=== PATIENT | female | born 1965 | race Hispanic/Latino ===

== ENCOUNTER 2019-10-21 12:41 | Emergency (ER) | payer BC, SELFPAY ==
[2019-10-21 12:43] VITALS: BP 127/75; PULSE 87; RESP 17; TEMP 37.1; O2SAT 98; BMI 28.4
--- NOTE | 2019-10-21 13:05 | CT_ITS ---
STUDY: CT BRAIN WITHOUT CONTRAST REASON FOR EXAM: Female, 54 years old. PEACE SINCE WEDNESDAY, HLD, HTN RADIATION DOSAGE (If Supplied By Facility): CTDIvol = ( 44.99 ) mGy, DLP = ( 779.24 ) mGycm TECHNIQUE: Transaxial CT imaging of the brain was performed without administration of intravenous contrast material. Individualized dose optimization techniques were used for this CT. COMPARISON: No relevant priors. FINDINGS: Normal soft tissue structures. Normal calvarium. Normal size ventricles and extra-axial spaces for the patient''s age. Normal white matter tracts of the cerebral hemispheres. Normal basal ganglia and thalami. Normal brainstem. Normal cerebellum. There is no intracranial hemorrhage. There are no findings of an acute ischemic infarction. Normal visualized paranasal sinuses. CT/Brain/Head without Contrast IMPRESSION: No acute intracranial hemorrhage or mass effect. Electronically Signed: Amol Vallecillo MD ([facility]) at 13:54 EDT , Service support ,
--- NOTE | 2019-10-21 13:06 | ED.DCSUM_ITS ---
- ER Visit Summary Date of Service: 10/21/19 Chief Complaint: Headache History of Present Illness: The patient is a 54 F who presents with a headache that is been getting worse over the past 3 days. Patient states the pain started on the right side of her head 3 days ago and yesterday it was on the left side of her head. Today it is back on the right side of her head in the frontal area. Patient states that yesterday she had some tingling in her left hand and was dropping things. Currently the patient denies any weakness or tingling. Patient denies any fevers or chills. Patient denies any nausea or vomiting. Patient denies any visual changes or photophobia. Patient states she took Aleve at home today with no relief. Physical Examination: Vital signs are stable. Patient is afebrile. Patient is in no acute distress. Pupils are equal, round, and reactive to light bi laterally. Extraocular muscles are intact. Tympanic membranes are clear bilaterally. Oral mucosa is pink and moist. Oropharynx is clear. Neck is supple. Trachea is midline. There is no JVD. Heart was regular rate and rhythm. Lungs are clear and equal bilateral. Abdomen is soft and nontender. Cranial nerves II through XII are intact. Strength is 5/5 bilateral in the upper and lower extremities. There are no sensory deficits noted. Test Results: CT scan of the brain was obtained. There is no acute intracranial hemorrhage or evidence of ischemic infarct. This was interpreted by the radiologist and reviewed by myself. Emergency Department Course and Treatment: Patient was given IV fluids, Reglan, and Benadryl. Patient was still having some headache after this. Patient was given injection of Toradol. Patient states her headache was at a 6 on a scale of 0-10. Patient was ordered morphine but she does not have a ride home. Patient was instructed to continue Tylenol and ibuprofen at home. She was given a prescription for a short course of [place] to take for severe pain. Patient was instructed to rest in a dark quiet room. Patient was instructed to drink plenty of fluids. Patient was instructed to follow-up with her primary care physician in 5 to 7 days. Patient understood and was agreeable with the plan. All questions were answered. Disposition: Discharge home Impression: 1. Headache This note was generated with [employer] software. It may contain incorrect words, spelling, and punctuation that were not noted in review of the chart prior to signing ED Disposition - Plan for ED Patient: Disposition: Home or Assisted Living Diagnosis: Headache Instructions: HEADACHE, Unspecified Prescriptions: Hydrocodone Bitart/Apap 5-325 [[place] 5MG-325MG] 1 tab PO Q4H PRN PRN 2 Days #10 tab PRN Reason: Pain Prescription Printed Referrals: Berry Mcneill DO [Primary Care Provider] - 3-5 Days
[2019-10-21] MEDS: DiphenhydrAMINE 50 MG/ML Syringe 25 MG IV (13:21)
[2019-10-21] MEDS: Metoclopramide 10 MG/2 ML Vial IV (13:22)
[2019-10-21] MEDS: 0.9% Normal Saline 1,000 ML 999 ML IV (13:32)
[2019-10-21] MEDS: Ketorolac 30 MG/ML Syringe IV (14:16)
[2019-10-21 15:51] VITALS: BP 119/71; PULSE 76; RESP 18; O2SAT 97
== END 2019-10-21 15:52 | disposition home or self-care (01) ==
PROVIDERS: Emergency Provider Emergency Medicine; PCP Student in an Organized Health Care Education/Training Program
DX: R51 Headache (principal); I10 Essential (primary) hypertension; R20.2 Paresthesia of skin; Z79.899 Other long term (current) drug therapy
CPT/HCPCS: 70450; 96361; 96374; 96375; 99284; J7030; A4216

== ENCOUNTER → 2019-10-31 07:34 | Outpatient (CLI) | payer BC, SELFPAY ==
[2019-10-21 12:43] VITALS: BMI 28.4
--- NOTE | 2019-10-31 07:40 | BI_ITS ---
MAMMOGRAPHY - BILATERAL SCREENING REASON FOR EXAM: Female, 54 years old. Routine annual screening examination. PERTINENT HISTORY: Non-contributory. TECHNIQUE: Digital bilateral breast rachna (3D mammographic acquisition) in the CC and MLO projections. 2-D mediolateral oblique (MLO) and craniocaudad (CC) views of both breasts were obtained. CAD: Full Field Digital Mammography with Computer Added Detection was performed. COMPARISON: Comparison is made with prior study dated April 21, 2017 and July 06, 2014. FINDINGS: Breast Composition: The breasts are heterogeneously dense, which may obscure small masses. There are no dominant masses or suspicious calcifications. Stable small benign-appearing bilateral axillary lymph nodes. No other significant abnormalities are identified. There has been no significant change since the prior study. BI/SCREEN MAMM (CAD) W/RACHNA BILAT IMPRESSION: Stable bilateral screening mammogram. Yearly follow-up mammogram recommended. (A) ASSESSMENT CATEGORY: BIRADS Category 2: Benign. A letter regarding these results will be sent to the patient by the facility within 30 days. Approximately 10% of breast cancers are not detected by mammography. A normal mammogram should not delay biopsy of a clinically suspicious abnormality. [id number] Electronically Signed: Marlo Mcknight, at 9:03 EDT , Service support ,
--- NOTE | 2019-10-31 07:40 | US_ITS ---
STUDY: THYROID ULTRASOUND REASON FOR EXAM: Female, 54 years old. THYROMEGALY FELT BY DOCTOR -- FAMILY HX OF THYROID CA TECHNIQUE: Ultrasound evaluation of the thyroid was performed with real-time and static concepcion-scale imaging. COMPARISON: None. FINDINGS: RIGHT LOBE: The right lobe of the thyroid gland measures 4.7 cm x 1.7 cm x 1.0 cm. There is a homogeneous echotexture. There are no demonstrated solid, cystic or complex lesions. LEFT LOBE: The left lobe of the thyroid gland measures 4.7 cm x 1.9 cm x 1.0 cm. There is a homogeneous echotexture. There are no demonstrated solid, cystic or complex lesions. ISTHMUS: The isthmus measures 2.0 mm. The regional lymph nodes are normal. US/Thyroid IMPRESSION: Normal ultrasound examination of the thyroid. Electronically Signed: Marlo Mcknight, at 9:48 EDT , Service support ,
--- NOTE | 2019-10-31 08:03 | BD_ITS ---
STUDY: DUAL ENERGY X-RAY ABSORPTIOMETRY / DXA REASON FOR EXAM: Female, 54 years old. [employer]BERING TEACHER- EARLY AT 41 YRS OLD -- DOES MODERATE AMOUNT OF EXERCISE -- FAMILY HX OF OSTEO- FATHER, GRANDMOTHER -- CRUZ OF 0.5 INCHES TECHNIQUE: Bone Mineral Density (BMD) measurements of lumbar spine and bilateral hips were obtained. COMPARISON: None. FINDINGS: Lumbar Spine (L1-L4): g/cm2 (1.062) / T-score (-0.9) / Z-score (-0.1) Findings are suggestive of normal bone density with a low fracture risk. Left Femur Total: g/cm2 (0.958) / T-score (-0.4) / Z-score (0.2) Left Femoral Neck: g/cm2 (0.855) / T-score (-1.3) / Z-score (-0.3) Right Femur Total: g/cm2 (0.957) / T-score (-0.4) / Z-score (0.2) Right Femoral Neck: g/cm2 (0.856) / T-score (-1.3) / Z-score (-0.3) BD/Dexa Bone Density Study IMPRESSION: The patient is considered osteopenic as outlined below according to World [employer] Organization (WHO) criteria with a low fracture risk. Reference Information: The T-score is the number of standard deviations above or below the standard which is normal for young adults at their peak bone mineral density. The World Health Organization (WHO) interprets the T-scores as follows: Above -1 Normal bone density Between -1 and -2.5 Osteopenia Equal to / or below -2.5 Osteoporosis As a practical clinical guideline, osteopenia may be graded as follows: Mild -1 through -1.5 Moderate -1.6 through -2.0 Severe -2.1 through -2.4 The Z-score is the number of standard deviations above or below age-matched controls. A Z-score of less than -1.5 would be considered abnormal. References: 1. NIH Osteoporosis and Related Bone Diseases http://www.osteo.org 2. International Society for Clinical Densitometry http://www.iscd.org 3. National Osteoporosis Foundation http://www.nof.org Electronically Signed: Marlo Mcknight, at 10:04 EDT , Service support ,
== END ==
PROVIDERS: PCP Student in an Organized Health Care Education/Training Program; Referring Provider Student in an Organized Health Care Education/Training Program; Visit Provider Student in an Organized Health Care Education/Training Program
DX: Z12.31 Encounter for screening mammogram for malignant neoplasm of breast (principal); Z13.820 Encounter for screening for osteoporosis; E04.9 Nontoxic goiter, unspecified; M85.80 Other specified disorders of bone density and structure, unspecified site; Z78.0 Asymptomatic menopausal state; Z80.8 Family history of malignant neoplasm of other organs or systems
CPT/HCPCS: 76536; 77063; 77067; 77080